=== PATIENT | female | born 1975 | race Caucasian/White ===

== ENCOUNTER 2023-07-18 22:58 | Emergency (ER) | payer SELFPAY ==
[2023-07-18 22:59] VITALS: BP 103/62; PULSE 85; RESP 18; TEMP 36.7; O2SAT 100; BMI 27.4
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
--- NOTE | 2023-07-18 23:41 | ED.RN ---
QUINCY Gutierrez wasted 8mg into [employer]. This nurse went to verify in [employer] waste with QUINCY Gutierrez and Carlos Alberto did not prompt for waste to be witnessed with other nurse. Quincy in pharmacy made aware.
[2023-07-18] MEDS: Orphenadrine 60 MG/2 ML Ampul IM (23:42)
[2023-07-18] MEDS: Ondansetron ODT 4 MG Tablet PO (23:42)
[2023-07-18] MEDS: HYDROmorphone 1 MG/ML Syringe 2 MG IM (23:48)
--- NOTE | 2023-07-18 23:56 | RAD_ITS ---
EXAM: XR Spine Lumbar 2 or 3 Views INDICATION: Female, 47 years old. Low back pain TECHNIQUE: AP and lateral views COMPARISON: None FINDINGS: The alignment of the lumbar spine demonstrates a mildly exaggerated lordosis. There is no focal listhesis or significant scoliosis. Vertebral bodies are intact. There is no pars defect. Intervertebral disc spaces are preserved. There is mild degenerative change of facet joints at L4-5 and L5-S1. No paraspinal soft tissue density. RAD/Lumbar Spine 2 or 3 Views IMPRESSION: 1. No acute abnormality of the lumbar spine 2. Mild degenerative facet disease of the lower lumbar spine. Electronically Signed: Jayden Ford MD at 0:58 EST ,
--- NOTE | 2023-07-18 23:59 | RAD_ITS ---
EXAM: XR Chest 2 Views INDICATION: Female, 47 years old. Chest pain TECHNIQUE: PA and lateral views COMPARISON: None FINDINGS: DEVICES: None LUNGS: There is elevation of the left hemidiaphragm. Platelike atelectasis versus scar noted at the left lung base. No confluent air space opacity. No concerning pulmonary nodule. No pleural effusion or pneumothorax. MEDIASTINUM: Borderline cardiomegaly. Mediastinal silhouette is within normal limits. No central pulmonary vascular congestion. . SKELETAL STRUCTURES: No acute skeletal abnormality. UPPER ABDOMEN: Unremarkable RAD/Chest PA and Lateral IMPRESSION: Elevation of left hemidiaphragm with left basilar platelike atelectasis versus scar formation. Electronically Signed: Jayden Ford MD at 0:57 EST ,
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
== END 2023-07-19 02:09 | disposition home or self-care (01) ==
PROVIDERS: Emergency Provider Emergency Medicine; Visit Provider Emergency Medicine
DX: S39.012A Strain of muscle, fascia and tendon of lower back, initial encounter (principal); S20.20XA Contusion of thorax, unspecified, initial encounter; F17.210 Nicotine dependence, cigarettes, uncomplicated; S16.1XXA Strain of muscle, fascia and tendon at neck level, initial encounter; V43.52XA Car driver injured in collision with other type car in traffic accident, initial encounter; R51.9 Headache, unspecified
CPT/HCPCS: 70450; 71046; 72100; 72125; 96372; 99282

== ENCOUNTER 2024-03-25 23:52 | Emergency (ER) | payer SELFPAY ==
[2024-03-25 23:52] VITALS: BP 105/68; PULSE 88; RESP 16; TEMP 36.8; O2SAT 99; BMI 24.7
[2024-03-26 00:52] VITALS: RESP 18
[2024-03-26 01:00] VITALS: PULSE 77; RESP 18; O2SAT 97
[2024-03-26 01:12] LABS: Absolute Lymphocyte Count 2.23 X10^3/uL (0.83-4.51); Absolute Neutrophil Count 2.1 X10^3/uL (2.0-7.7); Basophil# 0.09 X10^3/uL; Basophil% 1.8 % (0-1); Eosinophil# 0.23 X10^3/uL; Eosinophils% 4.5 % (0-5); Hematocrit 29.2 % (37-47); Hemoglobin 7.8 g/dL (12.0-15.0); Lymphocyte # 2.23 X10^3/ul (0.83-4.51); Lymphocyte % 43.8 % (19-41); Mean Corp Hgb Conc 26.7 g/dL (32-36); Mean Corpuscular Hgb 17.9 pg (27.0-32.0); Mean Platelet Vol. 9.9 fl (6.2-12.0); Monocyte# 0.42 X10^3/uL; Monocyte% 8.3 % (0-10); NRBC Flagged by Analyzer 0 % (0-5); Neutrophil % 41.2 % (47-70); POSITIVE MORPHOLOGY YES; Platelet Count 330 K/mm3 (150-450); RBC Distribution Width CV 21.6 % (11.6-14.6); RBC Distribution Width SD 51.7 fl (35.1-43.9); Red Blood Count 4.36 M/mm3 (4.2-5.4); White Blood Count 5.1 K/mm3 (4.4-11.0)
[2024-03-26 01:25] LABS: Alcohol, Blood (Medical)-Serum < 3.0 mg/dL
[2024-03-26 01:27] LABS: Anion Gap 4 (5-15); BUN 10 mg/dL (7-18); BUN/Creat Ratio 11.1 RATIO (10-20); Calcium,Total 8.9 mg/dL (8.5-10.1); Chloride 112 mmol/L (98-107); EST Glomerular Filtration Rate 70 mL/min (>60); Est Glom Filt Rate - Afr Amer 85 mL/min (>60); Estimated Creatinine Clearance 66.96 ml/min; Glucose 82 mg/dL (74-106); Potassium 4.1 mmol/L (3.5-5.1); Sodium Level 141 mmol/L (136-145)
[2024-03-26 01:37] LABS: Internal QC Validated? YES +Cl - CLEAR BKGD; Pregnancy, Serum, hCG Quali. NEGATIVE Negative
[2024-03-26 01:41] LABS: Differential Indicated SCAN CRITERIA MET
[2024-03-26 01:47] LABS: Mucous, Urine 0 SEEN /hpf (<or=2+)
[2024-03-26 01:56] LABS: Color, Urine Yellow (Yellow); Glucose, Dipstick Normal (Normal); Ketone-Dipstick 5 mg/dl (Negative); Leukocyte Esterase-Dipstick 500 /ul (Negative); Nitrite-Dipstick Positive (Negative); Occult Blood-Urine 250 /ul (Negative); Protein-Dipstick 30 mg/dl (Negative); Urine Bilirubin Dipstick Negative (Negative); Urine Clarity Cloudy (Clear); Urine Urobilinogen 1 mg/dl (Normal)
[2024-03-26 01:57] LABS: Bacteria 3+ /hpf (None Seen); Red Blood Cells-Urine 0-5 SEEN /hpf (0-5); Squamous Epithelial Cells - UA 0-5 SEEN /hpf (5-10); White Blood Cells 10-25 SEEN /hpf (0-5)
[2024-03-26 02:00] VITALS: PULSE 75; RESP 18; O2SAT 98
[2024-03-26 02:02] LABS: Amphetamine Urine VISTA NEGATIVE (<1000 ng/mL); Barbiturate Urine VISTA NEGATIVE (< 200 ng/mL); Benzodiazepine Urine VISTA NEGATIVE (< 200 ng/mL); Cocaine Urine VISTA NEGATIVE (< 300 ng/mL); Ecstacy Urine VISTA NEGATIVE (< 500 ng/mL); Methadone Urine VISTA NEGATIVE (< 300 ng/mL); PCP Urine VISTA NEGATIVE (< 25 ng/mL); THC Urine VISTA NEGATIVE (< 50 ng/mL)
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
[2024-03-26 03:00] VITALS: PULSE 80; RESP 18; O2SAT 95
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
[2024-03-26] MEDS: Cephalexin 250 MG Capsule 500 MG PO (04:18)
[2024-03-26 04:19] VITALS: BP 139/89; PULSE 88; RESP 17; TEMP 36.7; O2SAT 99
[2024-03-26 06:02] LABS: Vista UDS pH Range 6
== END 2024-03-26 04:22 | disposition home or self-care (01) ==
PROVIDERS: Emergency Provider Emergency Medicine; Visit Provider Emergency Medicine
DX: N39.0 Urinary tract infection, site not specified (principal); D64.9 Anemia, unspecified; F39 Unspecified mood [affective] disorder
CPT/HCPCS: 80048; 80307; 81001; 82077; 84703; 85025; 99285

== ENCOUNTER 2024-04-03 16:20 | Emergency (ER) | payer SELFPAY ==
[2024-04-03 16:21] VITALS: BP 106/73; PULSE 122; RESP 18; TEMP 36.8; O2SAT 98; BMI 23.2
--- NOTE | 2024-04-03 17:46 | ED.RN ---
PATIENT STATES SHE HAS BEEN THROWING UP ALL DAY AND THINKS SHE SHOULD LEAVE. RN STATES IT DOES NOT SEEM LIKE ANYTHING AT HOME HAS BEEN HELPING. I THINK YOU SHOULD BE SEEN. PATIENT STATES I THINK I JUST NEED TO SLEEP. PATIENT IN THE WAITING ROOM
[2024-04-03 18:20] VITALS: BP 104/65; PULSE 102; RESP 17; O2SAT 100
--- NOTE | 2024-04-03 18:43 | EKG12_ITS ---
Test Reason : Blood Pressure : / mmHG Vent. Rate : 089 BPM Atrial Rate : 089 BPM P-R Int : 126 ms QRS Dur : 074 ms QT Int : 372 ms P-R-T Axes : 000 065 062 degrees QTc Int : 452 ms Normal sinus rhythm Nonspecific T wave abnormality Abnormal ECG Confirmed by BEV DELANEY, HALEY ([id number]), business editor BERNIE US ([id number]) on 04/06/2024 9:27:57 AM Referred By: Confirmed By:HALEY PABLO MD
--- NOTE | 2024-04-03 18:49 | CT_ITS ---
STUDY: CT ABDOMEN AND PELVIS WITH CONTRAST REASON FOR EXAM: Female, 48 years old. rlq pain RADIATION DOSAGE (If Supplied By Facility): CTDIvol = ( 8.38 ) mGy, DLP = ( 396.03 ) mGycm TECHNIQUE: Transaxial images were obtained from the dome of the diaphragm to the symphysis pubis without oral contrast. IV 100mL Isovue-370 was administered. Sagittal and coronal images were reconstructed. Individualized dose optimization techniques were used for this CT. COMPARISON: None. FINDINGS: Elevated left hemidiaphragm with basilar atelectasis. The visualized portions of the heart are within normal limits. Up to 7 mm probable cystic nodules in the liver. Normal gallbladder and extrahepatic biliary system. Normal spleen. Normal pancreas. Normal bilateral adrenal glands. Normal right kidney. Normal left kidney. Normal visualized stomach. Normal small intestine. Slightly distended colon with air-fluid levels. The appendix is not visualized. Normal abdominal aorta. Normal inferior vena cava. Normal retroperitoneum. Normal urinary bladder. Left adnexal 2.9 cm cystic nodule. Endometrial thickening/fluid. Normal abdominal wall. Normal osseous structures. CT/Abdomen/Pelvis W IV Cont ONLY IMPRESSION: Subcentimeter hepatic likely cystic nodules. Left adnexal cystic nodule. Endometrial thickening/fluid. Slightly distended colon with air-fluid levels. Electronically Signed: Freddy Box DO at 19:51 EDT ,
[2024-04-03] MEDS: Ondansetron 4 MG/2 ML Vial IV (18:52)
[2024-04-03 19:04] LABS: Absolute Lymphocyte Count 1.64 X10^3/uL (0.83-4.51); Basophil# 0.02 X10^3/uL; Basophil% 0.1 % (0-1); Eosinophil# 0.51 X10^3/uL; Eosinophils% 2.8 % (0-5); Hematocrit 36.3 % (37-47); Hemoglobin 9.7 g/dL (12.0-15.0); Lymphocyte # 1.64 X10^3/ul (0.83-4.51); Lymphocyte % 9.1 % (19-41); Mean Corp Hgb Conc 26.7 g/dL (32-36); Mean Corpuscular Hgb 17.8 pg (27.0-32.0); Mean Corpuscular Volume 66.7 fL (81-99); Mean Platelet Vol. 9.8 fl (6.2-12.0); Monocyte# 0.78 X10^3/uL; Monocyte% 4.3 % (0-10); NRBC Flagged by Analyzer 0 % (0-5); Neutrophil # 15.02 X10^3/uL (2.7-7.7); Neutrophil % 83.2 % (47-70); POSITIVE MORPHOLOGY YES; Platelet Count 410 K/mm3 (150-450); RBC Distribution Width CV 21.5 % (11.6-14.6); RBC Distribution Width SD 49.4 fl (35.1-43.9); Red Blood Count 5.44 M/mm3 (4.2-5.4); White Blood Count 18.1 K/mm3 (4.4-11.0)
[2024-04-03 19:26] LABS: Differential Indicated SCAN CRITERIA MET
--- NOTE | 2024-04-03 19:38 | EDS_ITS ---
HPI History of Present Illness Chief Complaint: Nausea/Vomiting/Diarrhea Narrative Narrative: Patient is a 48-year-old female with past medical history of IBS, pancreatitis who presented to the emergency department the chief complaint of abdominal pain nausea vomiting diarrhea. Patient states that her significant other bedside recently had similar symptoms. States that her symptoms started around 6 AM this morning she was concerned that she may have pancreatitis again or may have IBS flare. Patient states that her symptoms were not improving throughout the day prompting her to come here for further evaluation management. Rates her pain a 7 out of 10. PFSH PFSH Home Medications ?Medication ?Instructions ?Recorded ?Last Taken ?Type methocarbamol 750 mg tablet 750 mg PO 4X/DAY PRN PRN Muscle 07/19/23 Unknown Rx pain/spasm 10 days #40 tabs oxycodone-acetaminophen 5 mg-325 1 tab PO Q6H PRN pain 3 days #12 07/19/23 Unknown Rx mg tablet (Percocet) tabs cephalexin 500 mg capsule 500 mg PO TID 7 days #21 caps 03/26/24 Unknown Rx ondansetron 4 mg disintegrating 4 mg PO Q6H PRN nausea and 04/03/24 Unknown Rx tablet vomiting #20 tabs Allergy/AdvReac Type Severity Reaction Status Date / Time Opioids - Morphine Analogues AdvReac Hives Verified 04/03/24 16:21 Surgical History History of surgery on arm History of appendectomy Tubal ligation status Previous section Social History Smoking Status: Never smoker ROS ROS ED ROS Narrative Constitutional: Denies any fever, chills, headaches, lightness, dizziness and Eyes: Denies any changes double vision blurry vision Cardiovascular: Denies chest pain or palpitations Respiratory: Denies coughing wheezing shortness of breath Abdomen: Complains of abdominal pain nausea vomiting as noted above : Patient states that she was recently diagnosed with a urinary tract fraction was prescribed medication but has not taken this yet Neurological: Patient follow commands knew that she was at [facility] years 2023 Musculoskeletal: Denies back pain Skin: Denies rashes or lesions EXAM Physical Exam Narrative Exam Narrative: General: Patient laying in bed rest comfortably did not appear to be in acute distress Head: Atraumatic, normocephalic Eyes: PERRL bilateral, EOMI bilateral, no conjunctival injection noted Neck: Soft, supple and trach midline Cardiovascular: Regular in rhythm no murmurs gallops rubs noted Respiratory: Clear to auscultation bilaterally no rales rhonchi or wheezes noted Abdomen: Soft, nondistended, diffuse tenderness palpation no rebound or guarding on exam Extremities: +5/5 strength noted in the bilateral lower extremities, no pedal edema no exam Neurological: Patient is fine commands knew that she was at [facility] years 2023 Skin: Warm, dry, intact Const Vital Signs: 04/03/24 16:21 04/03/24 18:20 04/03/24 20:00 Temperature 98.3 F Temperature Source Temporal Pulse Rate 122 H 102 H 68 Respiratory Rate 18 17 18 Blood Pressure 106/73 104/65 99/57 L Blood Pressure Mean 84 78 71 Pulse Ox 98 100 98 Oxygen Delivery Method Room Air Room Air Room Air 04/03/24 22:00 Temperature Temperature Source Pulse Rate 86 Respiratory Rate 18 Blood Pressure Blood Pressure Mean Pulse Ox 98 Oxygen Delivery Method Room Air MDM MDM MDM Narrative Medical decision making narrative: Patient is a 48-year-old female who presents to the emergency department chief complaint of abdominal pain. Patient will have a workup performed here on the differential diagnose includes but not limited to cholecystitis, pancreatitis, small bowel obstruction, viral gastroenteritis. Once workup is obtained reviewed she will be reevaluated. Patient CBC reviewed and was significant for leukocytosis of 18,000, hemoglobin was 9.7, platelet count normal at 410. Patient sodium normal at 136, potassium normal 3.7, creatinine was 1.03. Patient's AST and ALT were 19 and 18 respectively, troponin normal at 5 with an EKG reviewed by myself which showed sinus rhythm with a rate of 89 bpm. Patient's lipase normal at 34, urinalysis was reviewed and showed 25 leukocyte esterase which when compared to 03/26 showed 500 0-5 white cells seen before there were 10-25 and rare bacteria here today when compared previously at 3+. Patient once again states that she has not taken any antibiotics as she has not been able to pick them up from the pharmacy yet. Patient CT abdomen pelvis with IV contrast was reviewed which showed subcentimeter hepatic likely cystic nodules. Left adnexal cystic nodule endometrial thickening/fluid. Slightly distended colon with air fluid levels. There was an addendum made to this that showed questionable heterogeneity of the pancreatic head which may require further evaluation this was printed off and hard copy was given to the patient she was advised to take this to her primary care physician. On reevaluation the patient she has tolerated oral intake without any vomiting repeat abdominal exam at 1030 p.m. patient has no tenderness to palpation. At this point in time there is no identifiable source of infection. I did offer admission to the hospital for further observation of her symptom as well as her leukocytosis of unknown etiology she states that she does not want to stay she would like to go home and return with worsening symptoms or any other concerns. With shared decision making she will be discharged home. She was encouraged to follow-up with her primary care physician outpatient setting. She will given prescription for Zofran. She likely has a viral gastroenteritis as her significant other at bedside had very similar symptoms to her recently. Lab Data Labs: Laboratory Results - last 24 hr 04/03/24 04/03/24 18:56 21:40 WBC 18.1 H RBC 5.44 H Hgb 9.7 L Hct 36.3 L MCV 66.7 L MCH 17.8 L MCHC 26.7 L RDW Std Deviation 49.4 H RDW Coeff of Jerad 21.5 H Plt Count 410 MPV 9.8 Immature Gran % (Auto) 0.500 Neut % (Auto) 83.2 H Lymph % (Auto) 9.1 L Brooke % (Auto) 4.3 Eos % (Auto) 2.8 Baso % (Auto) 0.1 Absolute Neuts (auto) 15.0 H Absolute Lymphs (auto) 1.64 Nucleated RBC % 0 Differential Comment Platelet Estimate ADEQUATE Anisocytosis 2+ Stomatocytes RARE Sodium 136 Potassium 3.7 Chloride 107 Carbon Dioxide 24.0 Anion Gap 6 BUN 16 Creatinine 1.03 H Estim Creat Clear Calc 54.05 Est GFR (MDRD) Af Amer 73 Est GFR (MDRD) Non-Af 60 BUN/Creatinine Ratio 15.5 Glucose 112 H Calcium 9.3 Total Bilirubin 1.10 H AST 19 ALT 18 Alkaline Phosphatase 82 Troponin I High Sens 5 Total Protein 7.0 Albumin 3.6 Globulin 3.4 Albumin/Globulin Ratio 1.1 Lipase 34 Urine Color Yellow Urine Clarity Sl. Cloudy Urine pH 5.0 Ur Specific [place] 1.015 Urine Protein 30 H Urine Glucose (UA) Normal Urine Ketones Negative Urine Occult Blood 10 H Urine Nitrite Negative Urine Bilirubin Negative Urine Urobilinogen Normal Ur Leukocyte Esterase 25 H Urine RBC 0-5 SEEN Urine WBC 0-5 SEEN Ur Squamous Epith Cells 0-5 SEEN Urine Bacteria RARE Urine Mucus 1+ Radiography Diagnostic Testing: Clinical Impression(s) from Imaging Studies Abdomen/Pelvis CT 04/03/24 18:49 IMPRESSION: Subcentimeter hepatic likely cystic nodules. Left adnexal cystic nodule. Endometrial thickening/fluid. Slightly distended colon with air-fluid levels. Electronically Signed: Freddy Box DO at 19:51 EDT Reading Location ID and State: [id number] / [place] Tel [phone], Service support , ADDENDUM: 04/03/242045 IMPRESSION: undefined Discharge Plan Triage Chief Complaint: Nausea/Vomiting/Diarrhea ED Provider: Paul Andres Dx/Rx/DC Orders Prescriptions: New ondansetron 4 mg tablet,disintegrating 4 mg PO Q6H PRN (Reason: nausea and vomiting) Qty: 20 0RF No Action oxycodone-acetaminophen [Percocet] 5-325 mg tablet 1 tab PO Q6H PRN (Reason: pain) 3 Days Qty: 12 0RF methocarbamol 750 mg tablet 750 mg PO 4X/DAY PRN PRN (Reason: Muscle pain/spasm) 10 Days Qty: 40 0RF cephalexin 500 mg capsule 500 mg PO TID 7 Days Qty: 21 0RF Primary Care Provider: Care Physician,No Primary Referrals: Care Physician,No Primary [Primary Care Provider] - Gabi Teran MD [Non-Staff] - Activity Restrictions/Additional Instructions: Continue supportive care pushing fluids start with bland diet and advance as tolerated. Return for worsening symptoms or other concerns. Follow-up with primary care physician outpatient setting. Print Language: Uzbek Disposition Disposition: Home, Self Care
[2024-04-03 19:41] LABS: ALB/GLOB Ratio 1.1 RATIO (0.9-2.4); AST(SGOT) 19 U/L (15-37); Alanine Aminotransfer ALT/SGPT 18 U/L (13-56); Albumin, Serum 3.6 g/dL (3.2-5.0); Alkaline Phosphatase 82 U/L (45-117); Anion Gap 6 (5-15); BUN 16 mg/dL (7-18); BUN/Creat Ratio 15.5 RATIO (10-20); Calcium,Total 9.3 mg/dL (8.5-10.1); Chloride 107 mmol/L (98-107); Creatinine, Serum 1.03 mg/dL (0.55-1.02); EST Glomerular Filtration Rate 60 mL/min (>60); Est Glom Filt Rate - Afr Amer 73 mL/min (>60); Estimated Creatinine Clearance 54.05 ml/min; Globulin 3.4 g/dL (2.2-4.2); Glucose 112 mg/dL (74-106); Lipase 34 U/L (13-75); Potassium 3.7 mmol/L (3.5-5.1); Sodium Level 136 mmol/L (136-145); Troponin-I HS 5 pg/mL (3.0-54.0)
[2024-04-03 19:51] LABS: Platelet Estimate ADEQUATE (ADEQ)
[2024-04-03 19:52] LABS: Anisocytosis 2+; Stomatocyte RARE
[2024-04-03 20:00] VITALS: BP 99/57; PULSE 68; RESP 18; O2SAT 98
[2024-04-03 21:47] LABS: Color, Urine Yellow (Yellow); Glucose, Dipstick Normal (Normal); Ketone-Dipstick Negative (Negative); Leukocyte Esterase-Dipstick 25 /ul (Negative); Nitrite-Dipstick Negative (Negative); Occult Blood-Urine 10 /ul (Negative); Protein-Dipstick 30 mg/dl (Negative); Specific Gravity, Urine 1.015 (1.002-1.030); Urine Bilirubin Dipstick Negative (Negative); Urine Clarity Sl. Cloudy (Clear); Urine Urobilinogen Normal (Normal)
[2024-04-03 21:53] LABS: Mucous, Urine 1+ /hpf (<or=2+); Squamous Epithelial Cells - UA 0-5 SEEN /hpf (5-10)
[2024-04-03 21:54] LABS: Bacteria RARE /hpf (None Seen); Red Blood Cells-Urine 0-5 SEEN /hpf (0-5); White Blood Cells 0-5 SEEN /hpf (0-5)
[2024-04-03 22:00] VITALS: PULSE 86; RESP 18; O2SAT 98
[2024-04-03 22:51] VITALS: BP 133/76; PULSE 77; RESP 16; TEMP 36.7; O2SAT 99
== END 2024-04-03 23:14 | disposition home or self-care (01) ==
PROVIDERS: Emergency Provider Emergency Medicine; Visit Provider Emergency Medicine
DX: R11.2 Nausea with vomiting, unspecified (principal); Z98.51 Tubal ligation status; Z90.49 Acquired absence of other specified parts of digestive tract; R10.9 Unspecified abdominal pain
CPT/HCPCS: 74177; 80053; 81001; 83690; 84484; 85025; 93005; 96374; 99283; Q9967; A4216; J2405